=== PATIENT | female | born 1945 | race Caucasian/White ===

== ENCOUNTER → 2019-04-14 10:02 | Outpatient (CLI) | payer MEDICARE, SELFPAY ==
--- NOTE | ~2019-04-14 | MM_ITS ---
EXAMINATION: MM screening adolph BI w kemal HISTORY: Screening mammogram TECHNIQUE: Craniocaudal and mediolateral oblique 3-D tomosynthesis images were obtained and synthetic 2-D images were generated. CAD analysis was submitted and interpreted. COMPARISON: 02/02/2018, 01/08/2017, 12/17/2015 bilateral digital screening mammogram examinations BREAST PARENCHYMAL COMPOSITION: There are scattered areas of fibroglandular density. FINDINGS: Scattered bilateral benign calcifications. There is no evidence of suspicious mass, calcifi cation, or architectural distortion to suggest malignancy in either breast. There has been no suspici ous interval change. IMPRESSION: 1. No mammographic evidence of malignancy. 2. Recommend routine screening mammography in one year. BI-RADS Category 2: Benign finding(s). Reviewed, dictated and finalized at location A. CADET
== END ==
PROVIDERS: PCP Family Medicine; Visit Provider Family Medicine
DX: Z12.31 Encounter for screening mammogram for malignant neoplasm of breast (principal)
CPT/HCPCS: 77063; 77067

== ENCOUNTER 2019-10-27 00:34 | Outpatient (CLI) | payer MEDICARE, SELFPAY ==
[2019-10-27 17:08] LABS: SARS-CoV-2 RNA PCR Negative
== END 2019-10-27 00:35 | disposition home or self-care (01) ==
LOC: ANHCOVIDDT 00:34
PROVIDERS: PCP Family Medicine; Visit Provider Internal Medicine Gastroenterology
DX: Z01.812 Encounter for preprocedural laboratory examination (principal); Z11.59 Encounter for screening for other viral diseases
CPT/HCPCS: 87635; C9803; U0003

== ENCOUNTER 2019-10-30 00:21 | Day surgery (SDC) | payer MEDICARE, SELFPAY ==
[2019-10-20 13:41] VITALS: BMI 29.2
[2019-10-30 07:09] VITALS: BP 109/95; PULSE 69; RESP 16; TEMP 36.2; O2SAT 95; BMI 27.9
[2019-10-30] MEDS: LACTATED RINGERS 1,000 ML 150 ML IV CONT (07:19)
--- NOTE | 2019-10-30 07:48 | WPDANESEPPF ---
Anes - Initial Pre Proc Eval Procedure: Operation Date: 10/30/19 08:30 Proposed Procedures p Esophagogastroduodenoscopy & Screening Colonoscopy - Hitesh Clement MD Date/Time: 10/30/19 07:48 Surgeon: Hitesh Clement MD Pre Op Diagnosis: Hawley's Esophagus/ Neoplasm Screening Patient Data Age: 74 Gender: F Height: 5 ft 3 in Weight: 71.5 kg Last Vital Signs Temp 97.1 F L 10/30/19 07:09 Pulse 69 10/30/19 07:09 Resp 16 10/30/19 07:09 BP 109/95 H 10/30/19 07:09 Pulse Ox 95 10/30/19 07:09 Allergies Allergy/AdvReac Type Severity Reaction Status Date / Time No Known Allergies Allergy Verified 10/30/19 07:08 Home Medications Medication Instructions Recorded Confirmed Type alprazolam 0.5 mg tablet 0.5 mg PO TID PRN #90 tablet 04/27/19 10/20/19 Rx levothyroxine 25 mcg tablet See Rx Instructions .ROUTE 06/05/19 10/20/19 Rx .COMPLEX #90 tablet esomeprazole magnesium 20 mg 20 mg PO BID cap 07/19/19 10/20/19 History capsule,delayed release ferrous sulfate 325 mg (65 mg 325 mg PO DAILY #30 tablet 10/12/19 10/20/19 Rx iron) tablet amitriptyline 25 mg tablet See Rx Instructions .ROUTE 10/17/19 10/20/19 Rx .COMPLEX #270 tablet fluoxetine 20 mg capsule See Rx Instructions .ROUTE 10/17/19 10/20/19 Rx .COMPLEX #90 cap Patient hx anesthesia problems: none Family hx anesthesia problems: none PMFSH Social History Social History (System 05/05/19 @ 10:16 by Jewels Almaraz) Smoking status: Never smoker Second hand tobacco smoke exposure: Yes Alcohol intake: never Living arrangements: alone Anes - Eval Final PreProcedure Day of Procedure 10/30/19 07:48 Patient weight: normal Heart: regular rate and rhythm Lungs: clear to auscultation Airway: Mallampati scale class II Neurological: alert and oriented Last oral intake: >/= 8 hours ASA classification: III Emergent: no Anesthetic plan: proceed Anesthesia type and monitoring: general GIVS and standard monitoring Informed Consent: The patient's anesthetic plan and its attendant risks and benefits were discussed with the patient/family/POA. Questions were solicited and answers provided to the satisfaction of the patient/family/POA.
--- NOTE | 2019-10-30 07:51 | P.CONGI_ITS ---
Assessment and Plan Assessment and plan (1) Hawley's esophagus: Code(s): K22.70 - Hawley's esophagus without dysplasia Status: Acute Assessment and Plan: Patient has a known history of Hawley's esophagus plans for EGD and biopsy today. She has had dysplasia in the past follow-up at short intervals has been advised further recommendations will be given after endoscopy. Patient is to maintain anti-reflux measures and PPI at this time. (2) Encounter for screening colonoscopy: Code(s): Z12.11 - Encounter for screening for malignant neoplasm of colon Status: Acute Assessment and Plan: Screening colonoscopy today. Has been 11 years since last exam. Further recommendations will be given after endoscopy. GI Consult Note Consult date/time: 10/30/19 07:51 HPI: Keo Sheikh is a 74 year old female Seen in evaluation at the request of Dr. Evelyn Palma. Patient states that her weight appetite bowel movements are normal. She denies any abdominal pain. She has had no weight loss. She does have a known history of Hawley's esophagus. She presents today for follow-up EGD. She states that at 1 point was evaluated by Dr. desai at [facility]. Ablation was deferred as review of sites did fail to confirm high-grade dysplasia. She also states has been 11 years since last colonoscopy in screening colonoscopy will be performed as well. She denies any blood in her stools or weight appetite bowel movements are normal. Review of Systems Review of Systems: All systems reviewed & are unremarkable except as noted in HPI and below PMFSH Social History Social History (System 05/05/19 @ 10:16 by Jewels Almaraz) Smoking status: Never smoker Second hand tobacco smoke exposure: Yes Alcohol intake: never Living arrangements: alone Meds Home Medications and Allergies Home Medications Medication Instructions Recorded Confirmed Type alprazolam 0.5 mg tablet 0.5 mg PO TID PRN #90 tablet 04/27/19 10/20/19 Rx levothyroxine 25 mcg tablet See Rx Instructions .ROUTE 06/05/19 10/20/19 Rx .COMPLEX #90 tablet esomeprazole magnesium 20 mg 20 mg PO BID cap 07/19/19 10/20/19 History capsule,delayed release ferrous sulfate 325 mg (65 mg 325 mg PO DAILY #30 tablet 10/12/19 10/20/19 Rx iron) tablet amitriptyline 25 mg tablet See Rx Instructions .ROUTE 10/17/19 10/20/19 Rx .COMPLEX #270 tablet fluoxetine 20 mg capsule See Rx Instructions .ROUTE 10/17/19 10/20/19 Rx .COMPLEX #90 cap Allergies Allergy/AdvReac Type Severity Reaction Status Date / Time No Known Allergies Allergy Verified 10/30/19 07:08 Vital Signs Vital Signs - 24 hr 10/30/19 07:09 Temperature 97.1 F L Pulse Rate 69 Respiratory Rate 16 Blood Pressure 109/95 H Pulse Oximetry 95 Exam Narrative: Exam Narrative: Physical exam reveals patient to be alert. Vital signs stable. HEENT exam unremarkable. Lungs are clear to auscultation and percussion. Heart is without murmur or extra sounds. Abdominal exam bowel sounds are present soft nontender with no organomegaly. Digital external rectal exam is normal.
[2019-10-30 08:49] VITALS: BP 134/71; PULSE 83; RESP 16; O2SAT 98
[2019-10-30 08:59] VITALS: BP 118/67; PULSE 75; RESP 17; O2SAT 98
[2019-10-30 09:07] VITALS: BP 114/72; PULSE 79; RESP 17; O2SAT 98
== END 2019-10-30 09:25 | disposition home or self-care (01) ==
PROVIDERS: PCP Family Medicine; Visit Provider Internal Medicine Gastroenterology
PROC: 0DJ08ZZ Inspection of Upper Intestinal Tract, Via Natural or Artificial Opening Endoscopic (ICD-10-PCS; CPT 43235; principal; 2019-10-30 08:30)
DX: Z12.11 Encounter for screening for malignant neoplasm of colon (principal); K64.8 Other hemorrhoids; K57.30 Diverticulosis of large intestine without perforation or abscess without bleeding; K22.70 Barrett's esophagus without dysplasia; K44.9 Diaphragmatic hernia without obstruction or gangrene; K20.8 Other esophagitis
CPT/HCPCS: 43239; G0121; 88305; J2704; J7120

== ENCOUNTER → 2020-06-14 09:41 | Outpatient (CLI) | payer MEDICARE, SELFPAY ==
--- NOTE | ~2020-06-14 | MM_ITS ---
EXAMINATION: MM screening adolph BI w kemal HISTORY: Screening TECHNIQUE: Craniocaudal and mediolateral oblique 3-D tomosynthesis images were obtained and synthetic 2-D images were generated. CAD analysis was submitted and interpreted. COMPARISON: Comparison to multiple prior studies sequentially, with oldest reviewed study dated 08/21. BREAST PARENCHYMAL COMPOSITION: There are scattered areas of fibroglandular density. FINDINGS: There is no evidence of suspicious mass, calcification, or architectural distortion to sugg est malignancy in either breast. There has been no suspicious interval change. IMPRESSION: 1. No mammographic evidence of malignancy. 2. Recommend routine screening mammography in one year. BI-RADS Category 1: Negative Reviewed, dictated and finalized at location A.
== END ==
PROVIDERS: PCP Family Medicine; Visit Provider Family Medicine
DX: Z12.31 Encounter for screening mammogram for malignant neoplasm of breast (principal)
CPT/HCPCS: 77063; 77067

== ENCOUNTER → 2021-05-30 13:24 | Outpatient (CLI) | payer MEDICARE, SELFPAY ==
--- NOTE | ~2021-05-30 | DEXA_ITS ---
Bone Density Report Name: JOHNNIE ANGULO Age: 75 Sex: Female Ethnicity: White Date of : 1945 Indication: postmenopausal; screening for osteoporosis; parental hip fracture; height loss; hysterectomy; Referring Provider: Jennifer Sousa Study: Bone densitometry was performed. Exam Date: May 30, 2021 Accession number: [id number] There is hypertrophic degenerative change of the lumbar spine, which results in higher than expected spine bone mineral density measurements. These spine BMD and T score and Z score measurements are not reflective of the patient's true general bone mineral density. Bone Density: Region BMD T-score Z-score Classification AP Spine (L1-L4) 1.175 1.2 3.6 Normal Femoral Neck (Left) 0.809 -0.4 1.8 Normal Total Hip (Left) 0.889 -0.4 1.4 Normal Femoral Neck (Right) 0.822 -0.2 1.9 Normal Total Hip (Right) 0.739 -1.7 0.2 Osteopenia Total Hip Mean 0.814 -1.1 0.8 Osteopenia World Health Organization criteria for BMD impression classify patients as: Normal (T-score at or above -1.0), Osteopenia (T-score between -1.0 and -2.5), or Osteoporosis (T-score at or below -2.5). 10-year Fracture Risk(1): Major Osteoporotic Fracture 13% Hip Fracture 4.3% Reported Risk Factors: [place] (), Neck BMD=0.809, BMI=26.1, parental fracture (1) FRAX(R) Version 3.08. Fracture probability calculated for an untreated patient. Fracture probability may be lower if the patient has received treatment. Previous Exams: Region Exam Age BMD T-score BMD Change BMD Change Date g/cm2 vs Baseline vs Previous AP Spine(L1-L4) 05/30/2021 75 1.175 1.2 -0.008 -0.006 11/26/2015 70 1.181 1.2 -0.002 0.015 06/22/2013 67 1.166 1.1 -0.017 0.082* 01/28/2009 63 1.084 0.3 -0.099 -0.032* 05/10/2006 60 1.116 0.6 -0.068 -0.068 11/13/2002 57 1.183 1.2 Total Hip(Left) 05/30/2021 75 0.889 -0.4 -0.146 -0.071* 11/26/2015 70 0.960 0.2 -0.075 -0.043* 06/22/2013 67 1.003 0.5 -0.032 0.020 01/28/2009 63 0.983 0.3 -0.052 -0.016 05/10/2006 60 0.999 0.5 -0.036 -0.036 11/13/2002 57 1.036 0.8 Total Hip(Right) 05/30/2021 75 0.739 -1.7 -0.167 -0.083* 11/26/2015 70 0.822 -1.0 -0.084 0.022 06/22/2013 67 0.800 -1.2 -0.106 -0.041* 01/28/2009 63 0.841 -0.8 -0.065 -0.046* 05/10/2006 60 0.887 -0.4 -0.019 -0.019 11/13/2002 57 0.906 -0.3
== END ==
PROVIDERS: PCP Family Medicine; Visit Provider Physician Assistant
DX: Z78.0 Asymptomatic menopausal state (principal); M85.851 Other specified disorders of bone density and structure, right thigh
CPT/HCPCS: 77080

== ENCOUNTER → 2021-11-07 09:48 | Outpatient (CLI) | payer MEDICARE, SELFPAY ==
--- NOTE | ~2021-11-07 | MM_ITS ---
EXAMINATION: MM screening adolph BI w kemal HISTORY: Screening mammogram TECHNIQUE: Craniocaudal and mediolateral oblique 3-D tomosynthesis images were obtained and synthetic 2-D images were generated. CAD analysis was submitted and interpreted. COMPARISON: 06/14/2020, 04/14/2019, 02/02/2018 bilateral screening mammogram examinations BREAST PARENCHYMAL COMPOSITION: There are scattered areas of fibroglandular density. FINDINGS: There is a suspicious approximately 2 x 3.2 mm irregular density in the upper outer right b reast at mid depth (CC Tomosynthesis image 42/56). Diagnostic right mammogram and right breast ultras ound examination are recommended. Otherwise there is no evidence of suspicious mass, calcification, or architectural distortion to sugg est malignancy in either breast. There has been no other suspicious interval change. IMPRESSION: 1. Suspicious irregular 2 x 3.2 mm opacity in upper outer right breast 2. Diagnostic right mammogram and right breast ultrasound examination are recommended BI-RADS Category 0: Incomplete: Needs additional imaging evaluation. Reviewed, dictated and finalized at location A. IMPRESSION: 1. Suspicious irregular 2 x 3.2 mm opacity in upper outer right breast 2. Diagnostic right mammogram and right breast ultrasound examination are recom mended BI-RADS Category 0: Incomplete: Needs additional imaging evaluation.
== END ==
PROVIDERS: PCP Family Medicine; Visit Provider Family Medicine
DX: Z12.31 Encounter for screening mammogram for malignant neoplasm of breast (principal); R92.8 Other abnormal and inconclusive findings on diagnostic imaging of breast
CPT/HCPCS: 77063; 77067

== ENCOUNTER → 2021-11-24 08:41 | Outpatient (CLI) | payer MEDICARE, SELFPAY ==
--- NOTE | ~2021-11-24 | MM_ITS ---
EXAMINATION: MM diagnostic adolph RT w kemal HISTORY: Follow-up right breast asymmetry TECHNIQUE: Additional 3-D tomosynthesis images of the right breast were performed and synthetic 2-D i mages were generated. CAD analysis was submitted and interpreted. COMPARISON: Comparison to multiple prior studies sequentially, with oldest reviewed study dated 09/2015. BREAST PARENCHYMAL COMPOSITION: Breast composed of scattered areas of fibroglandular density FINDINGS: The right breast is stable. No suspicious masses, calcifications or architectural distortio n are identified to suggest malignancy. IMPRESSION: 1. No mammographic evidence for malignancy in the right breast. 2. Routine yearly screening mammogram and regular clinical breast examination are recommended. BI-RADS Category 1: Negative Reviewed, dictated and finalized at location A. IMPRESSION: 1. No mammographic evidence for malignancy in the right breast. 2. Routine yearly screening mammogram and regular clinical breast examination a re recommended. BI-RADS Category 1: Negative
== END ==
PROVIDERS: PCP Family Medicine; Visit Provider Family Medicine
DX: R92.8 Other abnormal and inconclusive findings on diagnostic imaging of breast (principal)
CPT/HCPCS: 77061; 77065; G0279

== ENCOUNTER 2022-12-22 01:24 | Day surgery (SDC) | payer MEDICARE, SELFPAY ==
[2022-12-08 14:26] VITALS: BMI 27.5
--- NOTE | 2022-12-18 09:57 | SUR.PREOP ---
Patient called regarding upcoming procedure. Reviewed preop instructions, appointment times, and procedure prep.
[2022-12-22 11:03] VITALS: BP 118/51; PULSE 85; RESP 18; TEMP 36.3; O2SAT 97
[2022-12-22] MEDS: LACTATED RINGERS 1,000 ML 150 ML IV CONT (11:09)
--- NOTE | 2022-12-22 11:18 | WPDANESEPPF ---
Anes - Initial Pre Proc Eval Procedure: Operation Date: 12/22/22 12:30 Proposed Procedures p Esophagogastroduodenoscopy - Hitesh Clement MD Date/Time: 12/22/22 11:18 Surgeon: Hitesh Clement MD Pre Op Diagnosis: Barretts Esophagus Patient Data Age: 77 Gender: F Height: 1.57 m Weight: 69.5 kg Last Vital Signs Temp 97.3 F L 12/22/22 11:03 Pulse 85 12/22/22 11:03 Resp 18 12/22/22 11:03 BP 118/51 L 12/22/22 11:03 Pulse Ox 97 12/22/22 11:03 O2 Del Method Room Air 12/22/22 11:03 Allergies Allergy/AdvReac Type Severity Reaction Status Date / Time nystatin Allergy Severe Rash Verified 12/22/22 11:01 Home Medications Medication Instructions Recorded Confirmed Type esomeprazole magnesium 20 mg 40 mg PO BID 11/08/19 12/08/22 History capsule,delayed release ascorbic acid (vitamin C) 500 mg 500 mg PO DAILY 07/18/21 12/08/22 History capsule cholecalciferol (vitamin D3) 250 250 mcg PO DAILY 07/18/21 12/08/22 History mcg (10,000 unit) capsule folic acid 800 mcg tablet 0.8 mg PO DAILY 07/18/21 12/08/22 History magnesium oxide 400 mg PO DAILY 07/18/21 12/08/22 History melatonin 3 mg capsule 5 mg PO QHS 07/18/21 12/08/22 History vitamin E mixed 1,000 unit capsule 1,000 unit PO DAILY 07/18/21 12/08/22 History vitamin K2 100 mcg capsule 100 mcg PO DAILY 07/18/21 12/08/22 History fluoxetine 20 mg capsule 40 mg PO DAILY #180 caps 08/16/22 12/08/22 Rx ezetimibe 10 mg tablet 10 mg PO DAILY #90 tabs 09/27/22 12/08/22 Rx amitriptyline 25 mg tablet See Rx Instructions .Route 10/14/22 12/08/22 Rx .COMPLEX #270 tabs alprazolam 0.5 mg tablet 0.25 mg PO BID-TID PRN anxiety #45 11/13/22 12/08/22 Rx tabs calcium 500 mg tablet 500 mg PO DAILY 12/08/22 12/08/22 History levothyroxine 25 mcg tablet 25 mcg PO DAILY 12/08/22 12/08/22 History mecobalamin (vitamin B12) 500 mcg 500 mcg PO DAILY 12/08/22 12/08/22 History chewable tablet Patient hx anesthesia problems: none Family hx anesthesia problems: none Results Review: All pre-operative results and documents have been reviewed as part of the pre-operative evaluation. [facility] Past Medical History Medical History Chronic neck pain Depression Endometrial cancer Hyperlipidemia Hypothyroidism Prediabetes Vestibular schwannoma Family History Family History Other Depression Diabetes mellitus Family history of elevated blood lipids Family history of malignant neoplasm of breast in first degree relative Hypertension Malignant neoplasm of prostate Social History Social History (Updated 01/23/22 @ 09:23 by Tiffany Thompson [facility]) Smoking status: Never smoker Second hand tobacco smoke exposure: Yes Alcohol intake: never Substance use: never Substance use type: does not use Lack of Transportation: No Lack of Food: Never True Current Housing: I Have Housing Concerned About Future Housing: No Difficulty Paying Gas/Electric Bills: No Difficulty Paying for Meds: No Currently Unemployed: No Education: Master's Degree or Higher Difficulty w/ Childcare or Family Care: No Living arrangements: alone Occupation/Education: retired Gender identity (if verbalized by the patient): Female Sexual Orientation (if Verbalized by the Patient): Straight or Heterosexual Spiritual care concerns: No Agree to blood products: Yes Anes - Eval Final PreProcedure Day of Procedure 12/22/22 11:18 Patient weight: normal Heart: regular rate and rhythm Lungs: clear to auscultation Airway: Mallampati scale class II Neurological: alert and oriented Last oral intake: >/= 8 hours ASA classification: III Emergent: no Anesthetic plan: proceed Anesthesia type and monitoring: general GIVS and standard monitoring Results Review: All pre-operative results and documents have been reviewed as part of the pre-opera
--- NOTE | 2022-12-22 11:28 | PM.HPGS ---
History of Present Illness History of Present Illness Consent: Risks, benefits, and alternatives have been discussed and questions answered. Patient agrees to proceed with procedure. Chief complaint: Barretts Esophagus Narrative: Keo Sheikh is a 77 year old female Presents for follow-up EGD. Patient known to have Hawley's esophagus. Patient is last exam 3 years ago revealed no dysplasia. Patient reports no swallowing difficulties. She has no heartburn. She has had no weight loss family history is noncontributory. Patient presents today for screening EGD. Review of Systems Review of Systems: Review of systems noncontributory. [facility] Past Medical History Medical History Chronic neck pain Depression Endometrial cancer Hyperlipidemia Hypothyroidism Prediabetes Vestibular schwannoma Family History Family History Other Depression Diabetes mellitus Family history of elevated blood lipids Family history of malignant neoplasm of breast in first degree relative Hypertension Malignant neoplasm of prostate Social History Social History (Updated 01/23/22 @ 09:23 by Tiffany Thompson [facility]) Smoking status: Never smoker Second hand tobacco smoke exposure: Yes Alcohol intake: never Substance use: never Substance use type: does not use Lack of Transportation: No Lack of Food: Never True Current Housing: I Have Housing Concerned About Future Housing: No Difficulty Paying Gas/Electric Bills: No Difficulty Paying for Meds: No Currently Unemployed: No Education: Master's Degree or Higher Difficulty w/ Childcare or Family Care: No Living arrangements: alone Occupation/Education: retired Gender identity (if verbalized by the patient): Female Sexual Orientation (if Verbalized by the Patient): Straight or Heterosexual Spiritual care concerns: No Agree to blood products: Yes Meds Home Medications and Allergies Home Medications Medication Instructions Recorded Confirmed Type esomeprazole magnesium 20 mg 40 mg PO BID 11/08/19 12/08/22 History capsule,delayed release ascorbic acid (vitamin C) 500 mg 500 mg PO DAILY 07/18/21 12/08/22 History capsule cholecalciferol (vitamin D3) 250 250 mcg PO DAILY 07/18/21 12/08/22 History mcg (10,000 unit) capsule folic acid 800 mcg tablet 0.8 mg PO DAILY 07/18/21 12/08/22 History magnesium oxide 400 mg PO DAILY 07/18/21 12/08/22 History melatonin 3 mg capsule 5 mg PO QHS 07/18/21 12/08/22 History vitamin E mixed 1,000 unit capsule 1,000 unit PO DAILY 07/18/21 12/08/22 History vitamin K2 100 mcg capsule 100 mcg PO DAILY 07/18/21 12/08/22 History fluoxetine 20 mg capsule 40 mg PO DAILY #180 caps 08/16/22 12/08/22 Rx ezetimibe 10 mg tablet 10 mg PO DAILY #90 tabs 09/27/22 12/08/22 Rx amitriptyline 25 mg tablet See Rx Instructions .Route 10/14/22 12/08/22 Rx .COMPLEX #270 tabs alprazolam 0.5 mg tablet 0.25 mg PO BID-TID PRN anxiety #45 11/13/22 12/08/22 Rx tabs calcium 500 mg tablet 500 mg PO DAILY 12/08/22 12/08/22 History levothyroxine 25 mcg tablet 25 mcg PO DAILY 12/08/22 12/08/22 History mecobalamin (vitamin B12) 500 mcg 500 mcg PO DAILY 12/08/22 12/08/22 History chewable tablet Allergies Allergy/AdvReac Type Severity Reaction Status Date / Time nystatin Allergy Severe Rash Verified 12/22/22 11:01 Vital Signs Vital Signs - 24 hr 12/22/22 11:03 Temperature 97.3 F L Pulse Rate 85 Respiratory Rate 18 Blood Pressure 118/51 L Pulse Oximetry 97 Oxygen Delivery Room Air Exam Narrative: Physical exam reveals patient to be alert. Vital signs stable. HEENT exam is unremarkable. Patient is anicteric. Lungs are clear to auscultation and percussion. Heart is without murmur or extra sounds. Abdomen bowel sounds are present soft nontender with no organomegaly. Assessment and
[2022-12-22 11:50] VITALS: BP 128/77; PULSE 74; RESP 19; O2SAT 100
[2022-12-22 12:00] VITALS: BP 133/74; PULSE 78; RESP 19; O2SAT 96
[2022-12-22 12:10] VITALS: BP 142/70; PULSE 74; RESP 20; O2SAT 99
== END 2022-12-22 12:17 | disposition home or self-care (01) ==
PROVIDERS: PCP Family Medicine; Visit Provider Internal Medicine Gastroenterology
PROC: 0DJ08ZZ Inspection of Upper Intestinal Tract, Via Natural or Artificial Opening Endoscopic (ICD-10-PCS; CPT 43235; principal; 2022-12-22 12:30)
DX: Z09 Encounter for follow-up examination after completed treatment for conditions other than malignant neoplasm (principal); K21.00 Gastro-esophageal reflux disease with esophagitis, without bleeding; Z87.19 Personal history of other diseases of the digestive system; E78.5 Hyperlipidemia, unspecified; E03.9 Hypothyroidism, unspecified; F32.A Depression, unspecified; Z85.42 Personal history of malignant neoplasm of other parts of uterus
CPT/HCPCS: 43239; 88305; J2704; J7120

== ENCOUNTER → 2023-02-02 07:06 | Outpatient (CLI) | payer MEDICARE, SELFPAY ==
--- NOTE | ~2023-02-02 | MM_ITS ---
EXAMINATION: MM screening adolph BI w kemal HISTORY: Screening mammogram TECHNIQUE: Craniocaudal and mediolateral oblique 3-D tomosynthesis images were obtained and synthetic 2-D images were generated. CAD analysis was submitted and interpreted. COMPARISON: 11/24/2021 diagnostic right mammogram 11/07/2021, 06/14/2020, 04/14/2019 bilateral screening mammogram examinations BREAST PARENCHYMAL COMPOSITION: There are scattered areas of fibroglandular density. FINDINGS: There is no evidence of suspicious mass, calcification, or architectural distortion to sugg est malignancy in either breast. There has been no suspicious interval change. IMPRESSION: 1. No mammographic evidence of malignancy. 2. Recommend routine screening mammography in one year. BI-RADS Category 1: Negative Reviewed, dictated and finalized at location A. TION ASSISTANT
== END ==
PROVIDERS: PCP Family Medicine; Visit Provider Family Medicine
DX: Z12.31 Encounter for screening mammogram for malignant neoplasm of breast (principal)
CPT/HCPCS: 77063; 77067

== ENCOUNTER 2024-02-22 13:20 | Outpatient (CLI) | payer MEDICARE, SELFPAY ==
--- NOTE | ~2024-02-22 | MM_ITS ---
EXAMINATION: MM screening adolph BI w kemal HISTORY: Screening mammogram, family history of breast cancer in her mother and sister. TECHNIQUE: Craniocaudal and mediolateral oblique 3-D tomosynthesis images were obtained and synthetic 2-D images were generated. CAD analysis was submitted and interpreted. COMPARISON: 02/02/2023, 11/07/2021, 06/14/2020 BREAST PARENCHYMAL COMPOSITION:Not Dense. There are scattered areas of fibroglandular density. FINDINGS: No suspicious mass, calcification, or architectural distortion are identified in either [place] ast to suggest malignancy. There has been no suspicious interval change. IMPRESSION: No mammographic evidence of malignancy. Recommend routine screening mammography in one year. BI-RADS Category 1: Negative Reviewed, dictated and finalized at location . ER FIXED INCOME
== END 2024-02-22 13:21 | disposition home or self-care (01) ==
LOC: MICIMG 13:21
PROVIDERS: PCP Family Medicine; Visit Provider Obstetrics & Gynecology Gynecology
DX: Z12.31 Encounter for screening mammogram for malignant neoplasm of breast (principal)
CPT/HCPCS: 77063; 77067